=== PATIENT | female | born 1975 | race Caucasian/White ===

== ENCOUNTER 2021-12-09 12:21 | Emergency (ER) | payer OTHER | END 2021-12-09 15:20 | disposition home or self-care (01) | LOC: MW.ED 12:21 | DX: S60.122A Contusion of left index finger with damage to nail, initial encounter (principal); Z88.0 Allergy status to penicillin; W20.8XXA Other cause of strike by thrown, projected or falling object, initial encounter; Y92.89 Other specified places as the place of occurrence of the external cause; Y99.0 Civilian activity done for income or pay | CPT/HCPCS: 73130-26-RT; 73130-RT; 99282; 99283 ==